=== PATIENT | female | born 1945 | race Asian ===

== ENCOUNTER 2020-07-28 09:38 | Inpatient (IN) | payer OTHER ==
[~2020-07-28] VITALS: Ht 152.4 cm; Wt 64.0 kg
[2020-07-28 09:57] VITALS: Ht 152.4 cm; Wt 64.0 kg
[2020-07-28 16:32] VITALS: BP 110/65
[2020-07-28 20:15] VITALS: BP 148/70
[2020-07-29 05:25] VITALS: BP 140/66
[2020-07-29 08:05] VITALS: BP 129/81
[2020-07-29 13:02] VITALS: BP 168/80
[2020-07-29 20:04] VITALS: BP 154/69
[2020-07-30 05:17] VITALS: BP 136/61
[2020-07-30 07:17] VITALS: BP 151/62
[2020-07-30 07:41] LABS: BASOPHIL % 0.2 % (0-2); PLATELET COUNT 181 x10^3mcL (130-400); RED CELL DISTRIBUTION WIDTH 12.7 % (11.5-14.5)
[2020-07-30 08:18] LABS: CALCIUM 8.6 mg/dL (8.5-10.1); CARBON DIOXIDE 27.4 mmol/L (21-32); CHLORIDE SERUM 105 mmol/L (98-107); CREATININE SERUM 0.7 mg/dL (0.6-1.0); GLUCOSE SERUM 104 mg/dL (74-106); SODIUM SERUM 140 mmol/L (136-145)
[2020-07-30 11:44] VITALS: BP 137/68
[2020-07-30 16:55] VITALS: BP 165/69
[2020-07-30 21:03] VITALS: BP 110/65
[2020-07-31 06:12] VITALS: BP 135/68
[2020-07-31 08:35] VITALS: BP 137/60
[2020-07-31 12:33] VITALS: BP 138/69
[2020-07-31 16:10] VITALS: BP 140/67
[2020-07-31 21:20] VITALS: BP 142/70
[2020-08-01 06:13] VITALS: BP 134/68
[2020-08-01 06:16] VITALS: BP 134/68
[2020-08-01 09:25] VITALS: BP 150/63
[2020-08-01] MEDS ORDERED: D-10001 TAB PO (10:04)
[2020-08-01 12:18] VITALS: BP 131/49
[2020-08-01 15:24] VITALS: BP 131/49
[2020-08-01 17:07] VITALS: BP 126/48
== END 2020-08-01 17:00 | disposition short-term general hospital (02) | DRG 347 ==
LOC: ED 09:38 → MU 11:07
PROVIDERS: ADMIT Family Medicine; ATTEND Family Medicine
DX: S32.019A Unspecified fracture of first lumbar vertebra, initial encounter for closed fracture (principal); W18.39XA Other fall on same level, initial encounter; Y93.89 Activity, other specified; Y92.89 Other specified places as the place of occurrence of the external cause; Y99.8 Other external cause status
CPT/HCPCS: 82962; 97110-GP; 97116-GP; 97530-GP; G0378; J1885; J7030